=== PATIENT | female | born 1975 | race Hispanic/Latino ===

== ENCOUNTER → 2021-05-27 | Day surgery (SDC) | payer SELFPAY ==
[~2021-05-27] MED LIST: DEXAMETHASONE SOD PHOS INJ 4 MG/ML SDV ONE; FENTANYL CITRATE/PF 100MCG/2 ML INJ ONE; GENTAMICIN SULFATE 40 MG/ML 2 ML VIAL ONE; GLYCOPYRROLATE INJ 0.2 MG/ML VIAL ONE; HYDROCODON-ACE1 EA12 PO; KETAMINE HCL INJ 50 MG/ML 10 ML VIAL ONE; LIDOCAINE HCL 2% LOCAL INJ 5 ML SDV VIAL INJ ONE; MIDAZOLAM HCL 2 MG/2 ML VIAL ONE; Morphine 10mg syringe 10 MG/ML INJ ONE; NEOSTIGMINE 1 MG/ML 10ML VIAL ONE; ONDANSETRON HCL 4 MG ORAL DISINTEGRATING TAB ONE; ONDANSETRON HCL INJ 2MG/ML 2ML 2 MG/ML VIAL ONE; POVIDONE IODINE 0.05% 0.05 % ML PO ONE; PROPOFOL IV EMULSION 10 MG/ML 20 ML VIAL ONE; ROCURONIUM BROMIDE 10 MG/ML 5ML VIAL IV ONE; SEVOFLURANE INHAL SOLN 250 ML PEN BTL ONE; SODIUM CHLORIDE 0.9% 500ML 500 ML ONE
[2021-05-27 12:50] VITALS: BP 138/90
== END | disposition home or self-care (01) ==
LOC: OR 05:34
PROVIDERS: ATTEND Plastic Surgery
DX: N60.82 Other benign mammary dysplasias of left breast (principal); N60.81 Other benign mammary dysplasias of right breast; E65 Localized adiposity; N64.81 Ptosis of breast; L98.7 Excessive and redundant skin and subcutaneous tissue; K76.0 Fatty (change of) liver, not elsewhere classified; R06.83 Snoring; Z01.812 Encounter for preprocedural laboratory examination; Z20.822 Contact with and (suspected) exposure to COVID-19; Z68.31 Body mass index [BMI] 31.0-31.9, adult
CPT/HCPCS: 15836; 19325; J0690; J1100; J1580; J2001; J2250; J2270; J2405; J2704; J2710; J3010; J7040; Q0162; U0002

== ENCOUNTER → 2021-07-15 | Day surgery (SDC) | payer BC ==
[~2021-07-15] MED LIST changes: +ACETAMINOPHEN-1 EAC4 PO; -GLYCOPYRROLATE INJ 0.2 MG/ML VIAL ONE; -KETAMINE HCL INJ 50 MG/ML 10 ML VIAL ONE; -Morphine 10mg syringe 10 MG/ML INJ ONE; -NEOSTIGMINE 1 MG/ML 10ML VIAL ONE; -ONDANSETRON HCL 4 MG ORAL DISINTEGRATING TAB ONE; -ROCURONIUM BROMIDE 10 MG/ML 5ML VIAL IV ONE; +SCOPOLAMINE 1.5 MG PATCH ONE; -SODIUM CHLORIDE 0.9% 500ML 500 ML ONE; +Vancomycin IV 500 MG ONE
[2021-07-15 13:20] VITALS: BP 125/81
== END | disposition home or self-care (01) ==
LOC: OR 10:22
PROVIDERS: ATTEND Plastic Surgery
DX: T85.79XA Infection and inflammatory reaction due to other internal prosthetic devices, implants and grafts, initial encounter (principal); Y83.1 Surgical operation with implant of artificial internal device as the cause of abnormal reaction of the patient, or of later complication, without mention of misadventure at the time of the procedure; Z20.822 Contact with and (suspected) exposure to COVID-19
CPT/HCPCS: 19328; 87071; 87075; 87205; J0690; J2250; J3010; J3370; U0002; J1100; J1580; J2001; J2405

== ENCOUNTER 2021-10-30 07:08 | Observation (INO) | payer BC ==
[~2021-10-30] VITALS: Ht 152.4 cm; Wt 81.6 kg
[~2021-10-30 07:08] MED LIST changes: -DEXAMETHASONE SOD PHOS INJ 4 MG/ML SDV ONE; +FAMOTIDINE 20 MG/2 ML VIAL IV ONE; -FENTANYL CITRATE/PF 100MCG/2 ML INJ ONE; -GENTAMICIN SULFATE 40 MG/ML 2 ML VIAL ONE; -LIDOCAINE HCL 2% LOCAL INJ 5 ML SDV VIAL INJ ONE; +METOCLOPRAMIDE HCL 10 MG/2ML VIAL ONE; -MIDAZOLAM HCL 2 MG/2 ML VIAL ONE; -ONDANSETRON HCL INJ 2MG/ML 2ML 2 MG/ML VIAL ONE; -POVIDONE IODINE 0.05% 0.05 % ML PO ONE; -PROPOFOL IV EMULSION 10 MG/ML 20 ML VIAL ONE; +SCOPOLAMINE 1.3 MG PATCH ONE; -SCOPOLAMINE 1.5 MG PATCH ONE; -SEVOFLURANE INHAL SOLN 250 ML PEN BTL ONE; -Vancomycin IV 500 MG ONE
[2021-10-30] MEDS ORDERED: GENTAMICIN SULFATE 40 MG/ML 2 ML VIAL ONE (09:24)
[2021-10-30] MEDS ORDERED: HYDROMORPHONE 1MG/1ML INJ ONE (09:57)
[2021-10-30] MEDS ORDERED: PROPOFOL IV EMULSION 10 MG/ML 20 ML VIAL ONE (12:05)
[2021-10-30] MEDS ORDERED: SEVOFLURANE INHAL SOLN 250 ML PEN BTL ONE (12:05)
[2021-10-30] MEDS ORDERED: NEOSTIGMINE 1 MG/ML 10ML VIAL ONE (12:05)
[2021-10-30] MEDS ORDERED: LIDOCAINE HCL 2% JELLY 5 ML TUBE ONE (12:05)
[2021-10-30] MEDS ORDERED: DEXAMETHASONE SOD PHOS INJ 4 MG/ML SDV ONE (12:05)
[2021-10-30] MEDS ORDERED: ROCURONIUM BROMIDE 10 MG/ML 5ML VIAL IV ONE (12:05)
[2021-10-30] MEDS ORDERED: ACETAMINOPHEN 1000 MG/100 ML IV ONE (12:05)
[2021-10-30] MEDS ORDERED: GLYCOPYRROLATE INJ 0.2 MG/ML VIAL ONE (12:05)
[2021-10-30] MEDS ORDERED: POVIDONE IODINE 0.05% 0.05 % ML PO ONE (12:05)
[2021-10-30] MEDS ORDERED: ONDANSETRON HCL INJ 2MG/ML 2ML 2 MG/ML VIAL ONE (12:05)
[2021-10-30] MEDS ORDERED: HYDROCODON-ACE1 EA11 PO (12:37)
[2021-10-30] MEDS ORDERED: ONDANSETRON HCL 4 MG ORAL DISINTEGRATING TAB SL PRN (12:45)
[2021-10-30] MEDS ORDERED: ACETAMINOPHEN 325 MG TAB PO PRN (12:45)
[2021-10-30] MEDS ORDERED: HYDROMORPHONE 1MG/1ML INJ IV PRN (12:45)
[2021-10-30] MEDS ORDERED: LACTATED RINGER'S 1,000 ML IV SCH (12:45)
[2021-10-30] MEDS ORDERED: HYDROCODONE/APAP 7.5MG-325MG 1 EA TAB PO PRN (12:45)
[2021-10-30] MEDS ORDERED: FENTANYL CITRATE/PF 100MCG/2 ML INJ ONE (13:23)
[2021-10-30] MEDS ORDERED: MIDAZOLAM HCL 2 MG/2 ML VIAL ONE (13:23)
[2021-10-30] MEDS ORDERED: KETAMINE HCL INJ 50 MG/ML 10 ML VIAL ONE (13:23)
[2021-10-30 13:30] VITALS: BP 115/75
[2021-10-30 16:47] VITALS: BP 116/77
[2021-10-30] MEDS ORDERED: DOCUSATE SODIUM 100 MG CAP PO SCH (17:00)
[2021-10-30] MEDS ORDERED: KEFLEX125 MG/5 M PO (19:30)
[2021-10-31] MEDS ORDERED: ENOXAPARIN SOD INJ 40 MG/0.4 ML SYR SC SCH (09:00)
== END 2021-10-30 20:20 | disposition home or self-care (01) ==
LOC: OR 07:08 → PACU V 13:11 → MED/SURG 13:30
PROVIDERS: ADMIT Plastic Surgery; ATTEND Plastic Surgery
DX: K43.9 Ventral hernia without obstruction or gangrene (principal); T85.79XS Infection and inflammatory reaction due to other internal prosthetic devices, implants and grafts, sequela; Y81.2 Prosthetic and other implants, materials and accessory general- and plastic-surgery devices associated with adverse incidents; Z20.822 Contact with and (suspected) exposure to COVID-19; K76.0 Fatty (change of) liver, not elsewhere classified
CPT/HCPCS: 17999; 19325; 49560; C1713 ×2; G0378; J0131; J0690; J1100; J1170; J1580; J2001; J2250; J2405; J2704; J2710; J2765; J3010; J7121; U0002